=== PATIENT | female | born 1985 | race African-American/Black ===

== ENCOUNTER 2022-06-23 14:22 | Emergency (ER) | payer OTHER ==
[~2022-06-23] VITALS: Ht 167.6 cm; Wt 125.6 kg
--- NOTE | 2022-06-23 14:45 | NUR ---
PATIENT BELONGINGS COLLECTED AND PLACED IN LOCKER ROOM
--- NOTE | 2022-06-23 14:47 | NUR ---
URINE COLLECTED AND SENT
[2022-06-23 15:36] LABS: BILIRUBIN,URINE NEGATIVE (NEGATIVE); COLOR,URINE YELLOW (YELLOW); LEUKOCYTE ESTERASE ,URINE NEGATIVE (NEGATIVE); NITRITE, URINE NEGATIVE (NEGATIVE); PH,URINE 5.5 (5.0-8.0); PROTEIN,URINE NEGATIVE (NEGATIVE); UGLUCOSE NEGATIVE (NEGATIVE); UROBILINOGEN,URINE 0.2 EU/dL (0.2)
[2022-06-23 15:37] LABS: BASOPHILS # (AUTO) 0.1 K/uL (0.0-0.2); BASOPHILS % (AUTO) 1.2 % (0.0-2.0); HEMATOCRIT 37 % (33-45); HEMOGLOBIN 11.9 g/dL (11.5-14.8); LYMPHOCYTES # (AUTO) 1.8 K/uL (0.8-4.8); LYMPHOCYTES % (AUTO) 34.2 % (20.0-44.0); MEAN CORPUSCULAR HGB CONC 32 g/dl (31.0-36.0); MEAN CORPUSCULAR VOLUME 93 fL (82-100); MONOCYTES # (AUTO) 0.5 K/uL (0.1-1.30); MONOCYTES % (AUTO) 9.3 % (2.0-12.0); NEUTROPHILS # (AUTO) 2.6 K/uL (1.8-8.9); NEUTROPHILS % (AUTO) 50.3 % (43.0-81.0); PLATELET COUNT (AUTO) 311 K/uL (150-450); RED BLOOD CELL COUNT(AUTO) 3.96 MIL/uL (4.0-5.2); WHITE BLOOD COUNT (AUTO) 5.2 K/uL (4.3-11.0)
[2022-06-23 15:48] LABS: CALCIUM, SERUM 8.3 mg/dL (8.5-10.1); CARBON DIOXIDE 27 mmol/L (21-32); CHLORIDE 105 mmol/L (98-107); GLUCOSE 99 mg/dL (74-106); POTASSIUM 4.3 mmol/L (3.5-5.1); SODIUM SERUM 137 mmol/L (136-145); UREA NITROGEN, BLOOD 14 mg/dL (7-18)
[2022-06-23 15:54] LABS: ALANINE AMINOTRANSFERASE 9 U/L (12-78); ALBUMIN 3.2 g/dL (3.4-5.0); ALCOHOL, BLOOD < 3 mg/dL (0-0); ALKALINE PHOSPHATASE 70 U/L (46-116); ASPARTATE AMINOTRANSFERASE 17 U/L (15-37); BILIRUBIN,DIRECT 0.1 mg/dL (0.0-0.2); BILIRUBIN,TOTAL 0.2 mg/dL (0.2-1.0); TOTAL PROTEIN, SERUM 7.2 g/dL (6.4-8.2)
[2022-06-23 17:04] LABS: BACTERIA,URINE 1+ /HPF (None Seen); RBC,URINE 21-50 /HPF (0-2); SQUAMOUS EPITHELIAL CELL,UR Few /HPF (None Seen); WBC,URINE 0-2 /HPF (0-3)
[2022-06-23] MEDS ORDERED: IBUPROFEN 600 MG TABLET PO ONE (18:00)
[2022-06-23] MEDS ORDERED: IBUPROFEN 600 MG TABLET ONE (18:18)
--- NOTE | 2022-06-23 23:04 | NUR ---
S/W VERENA FROM [facility] ACCEPTING PT , HE WILL CALL BACK WITH ROOM AND ACCEPTING DOCTOR INFO
--- NOTE | 2022-06-23 23:16 | NUR ---
[facility] : [address] BY [address] ARNDT REPORT [phone]
--- NOTE | 2022-06-23 23:19 | NUR ---
CALLED [facility] FOR TRASPORTATION ETA 70-90 MIN
--- NOTE | 2022-06-24 00:11 | NUR ---
REPORT GIVEN TO IRVING SALAZAR FOR CONTINUATION OF CARE.
--- NOTE | 2022-06-24 00:25 | NUR ---
REPORT GIVEN TO [facility] FOR PT TO D[facility] AT PT'S BEDSIDE
[2022-06-24 00:32] VITALS: BP 109/71
== END 2022-06-24 00:25 ==
LOC: ER 14:25
DX: R45.851 Suicidal ideations (principal); F32.A Depression, unspecified; Z91.51 Personal history of suicidal behavior; Z20.822 Contact with and (suspected) exposure to COVID-19; Z59.00 Homelessness unspecified
CPT/HCPCS: 99285; 85025; 80048; 80076; 84703; 81001; 36415; 87426; 80143; 80320; 80307; C9803; G0480